=== PATIENT | male | born 1975 | race Caucasian/White ===

== ENCOUNTER 2020-08-08 21:33 | Emergency (ER) | payer BC ==
[2020-08-09 12:28] LABS: SARS-CoV-2 MS2 Positive; SARS-CoV-2 N Gene Negative; SARS-CoV-2 S Gene Negative; SARS-CoV-2 by NAA Not Detected (NotDetected); SARS-CoV-2 orf1ab Negative
--- NOTE | 2020-08-11 14:07 | EKG ---
Test Reason : Blood Pressure : / mmHG Vent. Rate : 065 BPM Atrial Rate : 065 BPM P-R Int : 170 ms QRS Dur : 096 ms QT Int : 414 ms P-R-T Axes : 060 071 060 degrees QTc Int : 430 ms Normal sinus rhythm Possible Left atrial enlargement Borderline ECG Confirmed by ARRON SMITH ([id number]), editor newspaper ALVARADO KEMP ([id number]) on 08/11/2020 2:07:41 PM Referred By: Confirmed By:ARRON SMITH
== END 2020-08-09 00:04 | disposition home or self-care (01) ==
LOC: ERS 21:33
DX: J02.9 Acute pharyngitis, unspecified (principal); Z20.828 Contact with and (suspected) exposure to other viral communicable diseases; F41.9 Anxiety disorder, unspecified; Z79.899 Other long term (current) drug therapy
CPT/HCPCS: 87635; 93005; U0003

== ENCOUNTER 2020-09-30 08:51 | Emergency (ER) | payer BC ==
[2020-09-30] MEDS ORDERED: Boostrix 0.5 ML (Tdap) VIAL ONE (09:01)
[2020-09-30] MEDS ORDERED: Bacitracin 1 PK ONE (09:19)
== END 2020-09-30 09:30 | disposition home or self-care (01) ==
LOC: ERS 08:51
DX: S00.31XA Abrasion of nose, initial encounter (principal); S60.512A Abrasion of left hand, initial encounter; S60.511A Abrasion of right hand, initial encounter; S80.212A Abrasion, left knee, initial encounter; S00.511A Abrasion of lip, initial encounter; F41.9 Anxiety disorder, unspecified; Z23 Encounter for immunization; Z79.899 Other long term (current) drug therapy; W01.0XXA Fall on same level from slipping, tripping and stumbling without subsequent striking against object, initial encounter
CPT/HCPCS: 90471; 90715; 99283

== ENCOUNTER 2023-09-27 10:39 | Emergency (ER) | payer BC | END 2023-09-27 13:00 | disposition home or self-care (01) | LOC: ERS 10:39 | DX: S80.211A Abrasion, right knee, initial encounter (principal); S80.212A Abrasion, left knee, initial encounter; M79.642 Pain in left hand; W18.30XA Fall on same level, unspecified, initial encounter ==